=== PATIENT | female | born 1975 | race Caucasian/White ===

== ENCOUNTER 2021-05-26 13:51 | Emergency (ER) | payer SELFPAY ==
[~2021-05-26] VITALS: Ht 160 cm; Wt 79.4 kg
--- NOTE | 2021-05-26 14:02 | NUR ---
BIB [facility] C/O CHEST PAIN SINCE TODAY RATED 8/10 AND NUMBNESS IN RIGHT ARM. GIVEN 3 SPRRAYS OF NITRO AND ASPIRIN 324 MG. AAOX4, BREATHING EVEN AND UNLABORED, SKIN WARM AND DRY, TO ER BED 1, BLANKETS GIVEN, COMFORT MEASURES IN PLACE, VS STABLE.
--- NOTE | 2021-05-26 14:30 | NUR ---
BLOOD SAMPLE OBTAINED AND SENT TO LAB
[2021-05-26 14:32] LABS: BASOPHILS # (AUTO) 0.2 K/uL (0.0-0.2); EOSINOPHILS % (AUTO) 2.1 % (0.0-6.0); HEMATOCRIT 40 % (33-45); HEMOGLOBIN 13.2 g/dL (11.5-14.8); LYMPHOCYTES % (AUTO) 30.4 % (20.0-44.0); MEAN CORPUSCULAR HGB CONC 33 g/dl (31.0-36.0); MEAN CORPUSCULAR VOLUME 86 fL (82-100); MONOCYTES # (AUTO) 0.3 K/uL (0.1-1.30); MONOCYTES % (AUTO) 5.1 % (2.0-12.0); NEUTROPHILS # (AUTO) 3.9 K/uL (1.8-8.9); NEUTROPHILS % (AUTO) 59.4 % (43.0-81.0); PLATELET COUNT (AUTO) 268 K/uL (150-450); WHITE BLOOD COUNT (AUTO) 6.6 K/uL (4.3-11.0)
[2021-05-26 14:44] LABS: CALCIUM, SERUM 8.7 mg/dL (8.5-10.1); CARBON DIOXIDE 25 mmol/L (21-32); CHLORIDE 103 mmol/L (98-107); CREATININE 1.2 mg/dL (0.6-1.3); GLUCOSE 109 mg/dL (74-106); POTASSIUM 3.4 mmol/L (3.5-5.1); SODIUM SERUM 139 mmol/L (136-145); UREA NITROGEN, BLOOD 12 mg/dL (7-18)
--- NOTE | 2021-05-26 14:56 | NUR ---
REPEAT EKG BEING DONE AT BEDSIDE
[2021-05-26] MEDS ORDERED: ASPI-1498 PO (15:15)
[2021-05-26 15:30] VITALS: BP 130/89
== END 2021-05-26 15:24 | disposition home or self-care (01) ==
LOC: ER 14:14
DX: R07.2 Precordial pain (principal); I25.2 Old myocardial infarction; Z79.82 Long term (current) use of aspirin
CPT/HCPCS: 36415; 71045-TC; 80048-TC; 83880; 84484-TC; 85025-TC